=== PATIENT | male | born 1965 | race Caucasian/White ===

== ENCOUNTER 2016-10-11 20:42 | Observation (INO) | payer BC ==
[2016-10-11] MEDS ORDERED: ASPIRIN 81 MG CHEW PO STA (20:55)
[2016-10-11] MEDS ORDERED: SODIUM CHLORIDE 0.9% 1,000 ML IV STA (20:55)
--- NOTE | 2016-10-11 21:21 | ED ---
Chest Pain HPI - General Chief Complaint: Chest Pain Stated Complaint: Chest Pain Time Seen by Provider: 10/11/16 20:51 Source: patient, RN notes reviewed Mode of arrival: ambulatory Limitations: no limitations - History of Present Illness Initial Comments: 51-year-old male presents to the emergency Department chief complaint of chest pain. Patient states that around 4:30 today he developed chest pain in the center of his chest and he didshortness of breath. Patient states he took 2 nitros and the pain resolved. Patient states he does have a history of a heart attack and does have a defibrillator due to a weak heart. Patient states he did feel different than his heart attack. Patient states he had no nausea or vomiting with this. Patient denies any falls traumas or injuries. Patient states that at this time he has no pain. Patient denies any other complaints. Patient denies any recent fever, chills, back pain, abdominal pain, nausea vomiting, numbness or tingling, dysuria or hematuria, constipation or diarrhea, headaches or visual changes, or any other current symptoms. - Related Data Previous Rx's Medication Instructions Recorded Aspirin 325 mg PO DAILY #30 tab 04/18/15 Atorvastatin [Lipitor] 80 mg PO HS #30 tab 04/18/15 Lisinopril [Zestril] 2.5 mg PO HS #30 tab 04/18/15 Metoprolol Tartrate [Lopressor] 25 mg PO BID #60 tab 04/18/15 Nicotine 21Mg/24Hr Patch [Habitrol] 1 patch TRANSDERM DAILY #30 patch 04/18/15 Nitroglycerin Sl Tabs [Nitrostat] 0.4 mg SUBLINGUAL Q5M PRN #25 tab 04/18/15 Prasugrel [Effient] 10 mg PO DAILY #30 tab 04/18/15 Allergies Allergy/AdvReac Type Severity Reaction Status Date / Time No Known Allergies Allergy Verified 10/11/16 20:47 Review of Systems ROS Statement: Those systems with pertinent positive or pertinent negative responses have been documented in the HPI. ROS Other: All systems not noted in ROS Statement are negative. EKG Findings - EKG Comments: EKG Findings:: Normal sinus rhythm 73 beats per minute, patient does appear to have Q waves in leads 23 and aVF, T-wave inversion in [address] elevation noted. Past Medical History Past Medical History: Hypertension, Myocardial Infarction (TX) Last Myocardial Infarction Date:: 04/15/15 History of Any Multi-Drug Resistant Organisms: None Reported Past Surgical History: Orthopedic Surgery Additional Past Surgical History / Comment(s): defibulator Past Anesthesia/Blood Transfusion Reactions: No Reported Reaction Past Psychological History: No Psychological Hx Reported Smoking Status: Current every day smoker Past Alcohol Use History: Occasional Past Drug Use History: None Reported - Past Family History Father Family Medical History: Hypertension Additional Family Medical History / Comment(s): Angina General Exam - General Exam Comments Initial Comments: General: The patient is awake and alert, in no distress, and does not appear acutely ill. Eye: Pupils are equal, round and reactive to light, extra-ocular movements are intact; there is normal conjunctiva bilaterally. No signs of icterus. Ears, nose, mouth and throat: There are moist mucous membranes and no oral lesions. Neck: The neck is supple, there is no tenderness. Cardiovascular: There is a regular rate and rhythm. No murmur, rub or gallop is appreciated. Respiratory: Lungs are clear to auscultation, respirations are non-labored, breath sounds are equal. No wheezes, stridor, rales, or rhonchi. Gastrointestinal: Soft, non-distended, non-tender abdomen without masses or organomegaly noted. There is no rebound or guarding present. No CVA tenderness. Bowel sounds are unremarkable. Back: There is no tenderness to palpation in the midline. There is no obvious deformity. No rashes noted. Musculoskeletal: Normal ROM, no tenderness, There is no pedal edema. There is no calf tenderness or swelling. Sensation intact. Pulses equal bilaterally 2+. Neurological: CN II-XII intact, There are no obvious motor or sensory deficits. Coordination appears grossly intact. Speech is normal. Skin: Skin is warm and dry and no rashes or lesions are noted. Psychiatric: Cooperative, appropriate mood & affect, normal judgment. Limitations: no limitations Course Vital Signs 10/11/16 10/11/16 20:43 21:28 Temperature 98.0 F 98.1 F Pulse Rate 72 75 Respiratory 18 20 Rate Blood Pressure 189/99 157/92 O2 Sat by Pulse 95 98 Oximetry Chest Pain MDM - [facility] 51-year-old male presents to the emergency 5 chief complaint of chest pain with a history of TX. At this time patient's EKG as well as lab work is reviewed that do not show any acute findings. Patient's heart history along with the pain improving with nitro prior to arrival we will admit the patient for continued cardiac workup. This was discussed with patient who is in agreement with the plan. All patient's questions have been answered. He will be admitted at this time. Disposition Clinical Impression: Unstable angina Disposition: ADMITTED IP TO THIS HOSP Condition: Stable Time of Disposition: 22:54
[2016-10-11 21:42] LABS: Basophils # (A) 0.1 k/uL (0-0.2); Basophils % (A) 1 %; CH 31.1; CHCM 35.6; Eosinophils # (A) 0.3 k/uL (0-0.7); Eosinophils % (A) 3 %; HCT 39.1 % (39.0-53.0); HDW 2.63; Luc # (Auto) 0.16; Luc % (Auto) 2; Lymphocytes # (A) 3.7 k/uL (1.0-4.8); Lymphocytes % (A) 37 %; MCH 31.5 pg (25.0-35.0); MCV 87.7 fL (80.0-100.0); Mean Platelet Volume 7.9; Monocytes # (A) 0.6 k/uL (0-1.0); Monocytes % (A) 6 %; Neutrophils # (A) 5.2 k/uL (1.3-7.7); Neutrophils % (A) 52 %; RBC 4.45 m/uL (4.30-5.90); WBC 10.1 k/uL (3.8-10.6); WBC (Perox) 10.44
[2016-10-11 21:47] LABS: ALT 59 U/L (21-72); AST 36 U/L (17-59); Alkaline Phosphatase 91 U/L (38-126); Amylase 39 U/L (30-110); Anion Gap 13 mmol/L; Blood Urea Nitrogen 20 mg/dL (9-20); Calcium 9.1 mg/dL (8.4-10.2); Carbon Dioxide 21 mmol/L (22-30); Chloride 106 mmol/L (98-107); Glucose 111 mg/dL (74-99); Magnesium 1.9 mg/dL (1.6-2.3); Non-African American GFR(MDRD) >60 (>60 ml/min/1.73 sqM); Potassium 4.1 mmol/L (3.5-5.1); Sodium 140 mmol/L (137-145); Total Bilirubin 0.6 mg/dL (0.2-1.3); Total Protein 7.2 g/dL (6.3-8.2)
[2016-10-11 21:51] LABS: Partial Thromboplastin Time 24.4 sec (22.0-30.0); Prothrombin Time 9.9 sec (9.0-12.0)
[2016-10-11 22:18] LABS: Creatine Kinase 69 U/L (55-170)
[2016-10-11 22:31] LABS: Creatine Kinase MB 0.9 ng/mL (0.0-2.4); Troponin I <0.012 ng/mL (0.000-0.034)
--- NOTE | 2016-10-11 22:45 | XR ---
EXAMINATION TYPE: XR chest 2V DATE OF EXAM: 10/11/2016 10:37 PM COMPARISON: 11/26/2013 HISTORY: Chest pain TECHNIQUE: Frontal and lateral views of the chest are obtained. FINDINGS: Heart and mediastinum are normal. Lungs are clear. Diaphragm is normal. There is a defibri llator over the left lateral chest wall. There are no hilar masses. Bony thorax is intact. IMPRESSION: Normal chest. No change.
[2016-10-11] MEDS ORDERED: HEPARIN SODIUM,PORCINE 5,000 UNIT/ML 1 ML VIAL IV ONE (22:55)
[2016-10-11] MEDS ORDERED: NITROGLYCERIN SL TABS 0.4 MG TAB SUBLINGUAL PRN (22:55)
[2016-10-11] MEDS ORDERED: HEPARIN SODIUM,PORCINE/D5W PMX 25,000 UNIT in DEXTROSE/WATER 1 500ML.BAG IV SCH (23:00)
[2016-10-11 23:59] VITALS: BMI 28.0
[2016-10-12 04:18] LABS: Creatine Kinase 61 U/L (55-170)
[2016-10-12 04:31] LABS: Creatine Kinase MB 0.8 ng/mL (0.0-2.4); Troponin I <0.012 ng/mL (0.000-0.034)
[2016-10-12 07:10] LABS: Mean Platelet Volume 8.3
[2016-10-12 07:20] LABS: Cholesterol 145 mg/dL (<200); HDL Cholesterol 36 mg/dL (40-60); Triglycerides 153 mg/dL (<150)
[2016-10-12] MEDS ORDERED: NITROGLYCERIN SL TABS 0.4 MG TAB SUBLINGUAL PRN (07:37)
[2016-10-12 08:07] VITALS: RESP 16
[2016-10-12] MEDS ORDERED: ASPIRIN 81 MG CHEW PO SCH (09:00)
[2016-10-12] MEDS ORDERED: LISINOPRIL 10 MG TAB PO SCH (09:00)
[2016-10-12] MEDS ORDERED: NICOTINE 21MG/24HR PATCH TRANSDERM SCH (09:00)
[2016-10-12] MEDS ORDERED: METOPROLOL SUCCINATE (ER) 25 MG TAB.ER.24H PO SCH (09:00)
[2016-10-12] MEDS ORDERED: ASPIRIN 325 MG TAB PO SCH (09:00)
[2016-10-12 10:36] LABS: Creatine Kinase 56 U/L (55-170)
[2016-10-12 10:50] LABS: Creatine Kinase MB 0.7 ng/mL (0.0-2.4); Troponin I <0.012 ng/mL (0.000-0.034)
[2016-10-12 12:08] VITALS: BP 159/83; PULSE 59; TEMP 97.8
--- NOTE | 2016-10-12 16:36 | HP ---
DATE OF ADMISSION: 10/11/2016 PRESENTING COMPLAINT: Chest pain. HISTORY OF PRESENTING COMPLAINT: This is a 51-year-old patient who back in April 2015 had an acute IN with stent to the RCA. Also chronic stable conditions include hypertension, hyperlipidemia, EF at that time was 40%, since then the patient has not had a stress test. Patient is pretty active at his job. Patient presents with over half of an hour of the lower chest pain. Lasted for good about half an hour. Patient took two nitros and the went off. There was no radiation. No shortness of breath. No perspiration. No dizziness. Patient was admitted with a diagnosis of unstable angina. REVIEW OF SYSTEMS: CONSTITUTIONAL: None. HEENT: None. RESPIRATORY: None. CARDIOVASCULAR: As above. GASTROINTESTINAL: None. GENITOURINARY: None. MUSCULOSKELETAL: None. Dermatological: None. HEMATOLOGICAL: None. LYMPHATICS: None. PSYCHIATRY: None. NEUROLOGICAL: None. PAST MEDICAL HISTORY: Hypertension, hyperlipidemia, ischemic cardiomyopathy; ejection fraction 40%, acute IN with stent of the RCA. PAST SURGICAL HISTORY: Orthopedic surgery, cardiac cath with stent left wrist tendon repair, left cataract removed. SOCIAL HISTORY: The patient is smoking a pack a day for several years. . The patient works as changing oil person. . Alcohol occasionally. FAMILY HISTORY: COPD, hypertension, angina. HOME MEDICATIONS: 1. Aldactone 25 mg a day. 2. Nitrostat 0.4 sublingual q.5 p.r.n. 3. Toprol-XL 25 mg a day. 4. Zestril 10 mg b.i.d. 5. Lipitor 80 mg q.h.s. 6. Aspirin 162 mg a day. ALLERGIES: None. On examination vital signs on presentation: Temperature 98, pulse 72, respiration 18, blood pressure ( ), pulse ox 95% on room air. GENERAL APPEARANCE: Average build. Sitting up, not in distress. EYES: Pupils equal. Conjunctivae normal. HEENT: External appearance of nose and ears normal. Oral cavity normal. NECK: Palpable. RESPIRATORY: Effort normal. Lungs are clear. CARDIOVASCULAR: First and second sounds normal. No edema. ABDOMEN: Nontender. Liver and spleen not palpable. LYMPHATIC: No lymph nodes palpable in neck or axillae. PSYCHIATRY: Alert and oriented x3. Mood and affect normal. NEUROLOGICAL: Pupils equal. Cranial nerves grossly intact. Power and sensation grossly intact. INVESTIGATIONS: White count 10.1, hemoglobin 14.0, potassium 4.1. BUN and creatinine are normal. Troponin x3 negative. EKG shows normal sinus rhythm, some nonspecific changes in the inferolateral leads, chest x-ray normal. ASSESSMENT: 1. Possible unstable angina in a patient with known coronary artery disease continued to smoke. Troponins being negative. 2. Coronary artery disease with prior history of stent to right coronary artery in April 2015. 3. Essential hypertension, uncontrolled. 4. Hyperlipidemia. 5. Ischemic cardiomyopathy last ejection fraction was 40%. PLAN: Patient advised against smoking. We will add some nitrate. Changes Zestril with addition to hydrochlorothiazide. Cardiology is consulted. Patient and both counseled against smoking.
--- NOTE | 2016-10-12 17:20 | CONS ---
DATE OF CONSULTATION: 51-year-old male patient who presented to the hospital with chest discomfort, he was started on ( ) in the mid chest and this is associated with shortness of breath. He states that the pain is very different from when he had the heart attack. No dizziness, no lightheadedness or palpitations. REVIEW OF SYSTEMS: No fever, chills, rigors. No cough or expectoration. No nausea, vomiting or diarrhea. No hematuria, or dysuria. No strokes or seizures. No skin lesions or musculoskeletal complaints. Medication list was reviewed and includes: 1. Aspirin. 2. Atorvastatin. 3. Lisinopril. 4. Metoprolol. 5. Nicotine patch. 6. Nitroglycerin. 7. Effient. ALLERGIES: No known drug allergies. Past medical history of hypertension and myocardial infarction and cardiac arrest, status post subcutaneous ICD implant. Family history of hypertension. On examination, he is afebrile. His blood pressure was elevated upon admission, heart rate is in the 70s. Head and neck examination is normal. Heart sounds are normal. Lungs are clear to auscultation. EXTREMITIES: Warm. No edema. IMPRESSION: 1. Known ischemic cardiomyopathy. 2. Chronic obstructive pulmonary disease and history of myocardial infarction and hypertension. Labs were reviewed. His cardiac enzymes were normal. LDL was 78. Hemoglobin is normal. Blood pressure is 159/83 mm of mercury. 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
[2016-10-12] MEDS ORDERED: ATORVASTATIN 80 MG TAB PO SCH (21:00)
--- NOTE | 2016-10-13 14:22 | DS ---
DATE OF ADMISSION: 10/11/2016 DATE OF DISCHARGE: 10/12/2016 FINAL DIAGNOSES: 1. Chest pain, possible unstable angina in a patient with known coronary artery disease who has continued to smoke. Troponins are negative. 2. Coronary artery disease with prior history of stent of the RCA in April 2015. 3. Essential hypertension, uncontrolled. 4. Hyperlipidemia. 5. Ischemic cardiomyopathy; ejection fraction 40%. CONSULTATION: Dr. Contreras. HOSPITAL COURSE: This patient presented with anterior chest wall pain. Troponins are negative. Patient LDL came back at 78. Patient and both counseled against smoking. Dr. Contreras okayed the patient to be discharged. DISCHARGE MEDICATIONS: 1. Lipitor 80 mg q.h.s. 2. Nitrostat 0.4 sublingual q.5 p.r.n. 3. Aspirin 160 mg a day. 4. Zestoretic 06/26.5 1 tablet p.o. b.i.d., new prescription. 5. Toprol-XL 25 mg a day. 6. Nicotine 21 mg patch 14 days new prescription. The patient is to follow up with her [employer], Dr. López next week, follow-up with Dr. Streeter in 3 days. On exam, lungs are clear. CARDIOVASCULAR: First and second sounds normal.
== END 2016-10-12 15:30 | disposition home or self-care (01) ==
LOC: EC 20:42 → 3OBS 22:55
PROVIDERS: ADMIT Hospitalist; ATTEND Hospitalist
DX: R07.9 Chest pain, unspecified (principal); I25.10 Atherosclerotic heart disease of native coronary artery without angina pectoris; E78.5 Hyperlipidemia, unspecified; F17.210 Nicotine dependence, cigarettes, uncomplicated; I10 Essential (primary) hypertension; I25.5 Ischemic cardiomyopathy; I50.9 Heart failure, unspecified; I25.2 Old myocardial infarction; J44.9 Chronic obstructive pulmonary disease, unspecified; Z79.82 Long term (current) use of aspirin; Z95.5 Presence of coronary angioplasty implant and graft; Z95.810 Presence of automatic (implantable) cardiac defibrillator; Z79.899 Other long term (current) drug therapy; Z79.02 Long term (current) use of antithrombotics/antiplatelets
CPT/HCPCS: 36415; 93005; 80061; 80053; 82150; 82550 ×2; 82553 ×2; 83690; 83735; 84484 ×2; 85025; 85049; 85610; 85730 ×2; 71020; 99285; 96365; 96376; 96361 ×2; G0378 ×2; J1644 ×2; 96366

== ENCOUNTER → 2021-08-17 | Outpatient (CLI) | payer BC ==
[~2021-08-17] MED LIST: SODIUM CHLORIDE 0.9% 50 ML IVPB NR; SODIUM CHLORIDE 0.9% 500 ML 500 ML in EMPTY BAG 1 BAG IV PRN; SOTROVIMAB (EUA) 500 MG in SODIUM CHLORIDE 0.9% 100 ML IVPB NR
[2021-08-17 14:33] VITALS: TEMP 97.8
[2021-08-17 14:36] VITALS: BP 150/89; PULSE 84; RESP 16
== END ==
LOC: PROCWHC3 12:51
PROVIDERS: ATTEND Nurse Practitioner Adult Health
DX: U07.1 COVID-19 (principal); E66.9 Obesity, unspecified; F17.200 Nicotine dependence, unspecified, uncomplicated; Z68.29 Body mass index [BMI] 29.0-29.9, adult
CPT/HCPCS: 96360; Q0247; M0247

== ENCOUNTER → 2021-09-03 | Outpatient (CLI) | payer BC ==
--- NOTE | 2021-09-05 09:42 | ECHOF ---
Referral Reason:I25.5 Ischemic cardiomyopathy MEASUREMENTS -------- HEIGHT: 180.3 cm WEIGHT: 97.5 kg BP: RVIDd: 2.5 cm (< 3.3) IVSd: 1.0 cm (0.6 - 1.1) LVIDd: 5.7 cm (3.9 - 5.3) LVPWd: 1.0 cm (0.6 - 1.1) IVSs: 1.5 cm LVIDs: 4.6 cm LVPWs: 1.2 cm LAESV Index (A-L): 15.89 ml/m Ao Diam: 3.3 cm (2.0 - 3.7) AV Cusp: 1.9 cm (1.5 - 2.6) LA Diam: 3.5 cm (2.7 - 3.8) MV EXCURSION: 14.577 mm (> 18.000) MV EF SLOPE: 97 mm/s (70 - 150) EPSS: 1.1 cm MV E Buzz: 0.64 m/s MV DecT: 174 ms MV A Buzz: 0.84 m/s MV E/A Ratio: 0.76 RAP: 5.00 mmHg RVSP: 8.40 mmHg FINDINGS -------- AICD This was a technically adequate study. The left ventricular size is normal. Left ventricular wall thickness is normal. Overall left vent ricular systolic function is mild-moderately impaired with, an EF between 40 - 45 %. Basal inferior LV wall motion is hypokinetic. Mid inferior LV wall motion is hypokinetic. Basal inferolateral hypokinesis. The right ventricle is normal in size. The left atrial size is normal. The right atrial size is normal. The aortic valve is trileaflet and appears structurally normal. The mitral valve is normal. There is trace mitral regurgitation. The tricuspid valve appears structurally normal. Trace tricuspid regurgitation present. Right earnestine tricular systolic pressure is normal at < 35 mmHg. There is no pulmonic regurgitation present. The aortic root size is normal. Normal inferior vena cava with normal inspiratory collapse consistent with estimated right atrial pre ssure of 5 mmHg. There is no pericardial effusion. CONCLUSIONS -------- 1. The left ventricular size is normal. 2. Left ventricular wall thickness is normal. 3. Overall left ventricular systolic function is mild-moderately impaired with, an EF between 40 - 45 %. 4. Basal inferior LV wall motion is hypokinetic. 5. Mid inferior LV wall motion is hypokinetic. 6. Basal inferolateral hypokinesis. 7. There is trace mitral regurgitation. 8. Trace tricuspid regurgitation present. METAL FLOORING INSTALLER: Janelle Swanson RDCS
== END | disposition home or self-care (01) ==
LOC: RADECHMAIN 13:58
PROVIDERS: ATTEND Family Medicine
DX: I08.1 Rheumatic disorders of both mitral and tricuspid valves (principal)
CPT/HCPCS: 93306

== ENCOUNTER → 2021-11-28 | Outpatient (CLI) | payer OTHER, BC ==
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
== END | disposition home or self-care (01) ==
LOC: RADCTMAIN 06:11
PROVIDERS: ATTEND Family Medicine
DX: J43.8 Other emphysema (principal); I25.10 Atherosclerotic heart disease of native coronary artery without angina pectoris
CPT/HCPCS: 71250

== ENCOUNTER → 2022-01-18 | Outpatient (CLI) | payer BC ==
--- NOTE | 2022-01-18 07:50 | US ---
EXAMINATION TYPE: US kidneys/renal and bladder DATE OF EXAM: 01/18/2022 COMPARISON: NONE CLINICAL HISTORY: N17.9 ACUTE KIDNEY FAILURE. abn labs, no symptoms EXAM MEASUREMENTS: Right Kidney: 9.3 x 4.3 x 4.7 cm Left Kidney: 10.4 x 3.9 x 5.4 cm Right Kidney: No hydronephrosis or masses seen Left Kidney: No hydronephrosis or masses seen Bladder: wnl There is no evidence for hydronephrosis at this point in time. No nephrolithiasis is seen. No nona s are identified. The urinary bladder is anechoic. Bilateral ureteral jets are seen. IMPRESSION: Mild renal parenchymal thinning.
== END | disposition home or self-care (01) ==
LOC: RADUSWWP 06:54
PROVIDERS: ATTEND Family Medicine
DX: N28.89 Other specified disorders of kidney and ureter (principal)
CPT/HCPCS: 76770

== ENCOUNTER → 2024-09-27 | Outpatient (CLI) | payer BC ==
--- NOTE | 2024-09-27 17:25 | CTL ---
EXAMINATION TYPE: CT Low Dose Lung DATE OF EXAM: 09/27/2024 5:13 PM COMPARISON: 11/28/2021 CLINICAL INDICATION: Male, 59 years old with history of Z12.2 LUNG CA SCR F14.210 CURRENT SMOKER; smo ker, history of tobacco use. TECHNIQUE: Multiple axial non-contrast scans were obtained from approximately the lung apices through the upper abdomen. Coronal and sagittal reformatted images were obtained. Low dose technique was uti lized. MIP were created on a separate workstation and submitted for review. CT DLP: 146.1 mGycm, Automated exposure control for dose reduction was used. CT Contrast: Contrast used: None Oral contrast used: None FINDINGS: Lack of intravenous contrast and low dose technique limits the evaluation of the vascular and soft ti ssue structures. LUNGS: No evidence of pulmonary fibrosis. No evidence of focal consolidation, pneumothorax or pleural effusion. Centrilobular emphysema changes. Nodules: RUL: None. RML: None. RLL: None. [place]: None. LLL: Chronic glass nodule/parenchymal abnormality series 5 image 52 not seen on 11/28/2021.. AIRWAY: Patent and unremarkable. HEART: Size within normal limits.Atherosclerosis of the arterial vasculature. Cardiac conduction lead s terminating in the anterior subcutaneous tissues. MEDIASTINUM: No gross evidence of adenopathy. VASCULATURE: No aortic aneurysm. MUSCULOSKELETAL: Mild disc degeneration changes are present throughout the thoracolumbar spine. SOFT TISSUES/LYMPH NODES: Unremarkable. LOWER NECK: No significant findings. UPPER ABDOMEN: No significant findings. IMPRESSION: 1. No clinically significant pulmonary nodules. 2. Mild emphysema. CT LUNG RAD AND CT CHEST RECOMMENDATION: Lung-Rad 2 Benign Appearance or Behavior: Continue annual sc reening with LDCT in 12 months. S Modifier (other clinically significant findings): None Recommend smoking cessation (if current smoker), or continuation of smoking cessation (if prior smoke r). Annual screening for lung cancer with low-dose computed tomography is recommended in adults ages 55 to 77 years who have a 30 pack-year smoking history and currently smoke or have quit within the pa st 15 years. Screening should be discontinued once a person has not smoked for 15 years or develops a health problem that substantially limits life expectancy or the ability or willingness to have curat dwayne lung surgery. Lung rads 2021 [email or web address] [facility], , 09/27/2024 5:23 PM
== END | disposition home or self-care (01) ==
LOC: RADCTMAIN 15:32
PROVIDERS: ATTEND Family Medicine
DX: Z12.2 Encounter for screening for malignant neoplasm of respiratory organs (principal); I73.9 Peripheral vascular disease, unspecified; J43.9 Emphysema, unspecified; F17.210 Nicotine dependence, cigarettes, uncomplicated
CPT/HCPCS: 71271

== ENCOUNTER → 2024-09-27 | Outpatient (CLI) | payer BC ==
--- NOTE | 2024-09-27 16:13 | US ---
EXAMINATION TYPE: US arterial LE single level DATE OF EXAM: 09/27/2024 2:59 PM COMPARISONS: None. CLINICAL INDICATION: Male, 59 years old with history of I73.9 PERIPHERAL VASCULAR DISEASE, UNSPECIFIE D; PVD TECHNIQUE: Systolic pressures were taken of the upper and lower extremity arteries with ankle-brachia l indices and toe brachial indices calculated bilaterally. History of: Smoker: current Hypertension: yes Diabetic: yes Hyperlipidemia: yes TIA/CVA: no Previous Vascular Surgery: no CO: yes Vascular Ulcers: no Claudication: no Gangrene: no FINDINGS: Doppler Waveforms: Right: Left: Pulse Volume Recording: Pressure Gradients: Brachial Artery systolic pressure: Right: 159 Left: 155 Posterior Tibial artery systolic pressure: Right: 161 Left: 142 Dorsalis Pedis artery systolic pressure: Right: 142 Left: 113 Toe artery systolic pressure: Right: 120 Left: 96 Ankle-Brachial Indices: Right: 1.01 Left: 0.89 Toe Brachial Indices: Right: 0.75 Left: 0.60 (Normal > 0.6; Mild 0.35 - 0.59, Moderate 0.12 - 0.34, Severe <0.12) IMPRESSION: 1. No significant stenosis identified by ratios and velocities. [facility], , 09/27/2024 4:10 PM
== END | disposition home or self-care (01) ==
LOC: RADUSWWP 14:57
PROVIDERS: ATTEND Family Medicine
DX: I73.9 Peripheral vascular disease, unspecified (principal)
CPT/HCPCS: 93923

== ENCOUNTER 2025-01-21 07:02 | Day surgery (SDC) | payer BC ==
[2025-01-19 08:49] VITALS: BMI 31.4
[2025-01-21] MEDS: IV FLUID CONTINUATION 1,000 ML IV ONE (07:34)
[2025-01-21] MEDS: LACTATED RINGERS 1,000 ML IV SCH (07:34)
[2025-01-21 07:35] VITALS: RESP 16; TEMP 97.1
[2025-01-21] MEDS ORDERED: PROPOFOL 10 MG/ML 20 ML VIAL IV ONE (07:40)
[2025-01-21] MEDS ORDERED: LIDOCAINE 1% INJ 10MG/ML (20 ML MDV) ONE (07:40)
--- NOTE | 2025-01-21 08:06 | P.PCN ---
Date of Procedure: 01/21/25 Procedure(s) Performed: Brief history: Patient is a pleasant 59-year-old white male scheduled for an elective upper endoscopy as well as colonoscopy as a part of evaluation of GERD and screening for colon cancer Procedure performed: Esophagogastroduodenoscopy with biopsy Colonoscopy with snare polypectomy Preoperative diagnosis: GERD Screening for colon cancer Anesthesia: MAC Procedure: After informed consent was obtained from the patient was brought into the endoscopy unit and IV sedation was administered by anesthesia under continuous monitoring. Initially upper endoscopy was done. The Olympus GF 160 video endoscope was inserted inserted into the mouth and esophagus intubated without any difficulty and was gradually advanced into the stomach and duodenum and carefully examined. The bulb had mild duodenitis and second part of the duodenum appeared normal. The scope was then withdrawn into the stomach adequately insufflated with air and upon careful examination the antrum had patchy areas of erythema consistent with gastritis. Biopsies were done from this area. Mucosa of the body, cardia and fundus appeared normal. The scope was then withdrawn into the esophagus. The GE junction was located at 40 cm to the incisors. It appeared regular with linear erosions in the distal esophagus consistent with LA grade B reflux esophagitis rest of the esophagus appeared normal. Patient tolerated the procedure well. At this time the patient continued to remain sedation. Initial digital rectal examination was normal. Olympus CF 160 video colonoscope was then inserted into the rectum and gradually advanced to the cecum without any difficulty. Careful examination was performed as the scope was gradually being withdrawn. The prep was excellent. The cecum, ascending colon, transverse colon, descending colon, appeared normal. The sigmoid colon there was a 5 mm polyp that was removed by snare polypectomy. In the rectosigmoid colon there was a 1 cm polyp removed by snare polypectomy. In the rectum there were two 1 cm polyps and 1.2 cm polyp removed by snare polypectomy. Rest of the sigmoid colon and rectum appeared normal. Retroflexion was performed in the rectum and no lesions were noted. Patient tolerated the procedure well. Impression: 1. Upper endoscopy revealed linear erosions of the distal esophagus consistent with LA grade B reflux esophagitis, mild antral gastritis and duodenitis 2. Colonoscopy revealed: 5 mm sigmoid colon polyp status post polypectomy 1 cm rectosigmoid polyp status post polypectomy 1 cm x 2 and 1.2 cm rectal polyp status post polypectomy Recommendations: Findings of this examination were discussed with the patient as well as his family. He was advised to follow-up with the biopsy results. He will be started on omeprazole 20 mg daily and was advised to follow antireflux measures. If the biopsy reveals adenoma he can have repeat colonoscopy in 3 years for
[2025-01-21 08:32] VITALS: BP 108/63; PULSE 61
== END 2025-01-21 08:58 | disposition home or self-care (01) ==
LOC: ORWHC2ENDO 07:02
PROVIDERS: ATTEND Internal Medicine Gastroenterology
DX: Z12.11 Encounter for screening for malignant neoplasm of colon (principal); K29.50 Unspecified chronic gastritis without bleeding; D12.5 Benign neoplasm of sigmoid colon; D12.7 Benign neoplasm of rectosigmoid junction; K21.9 Gastro-esophageal reflux disease without esophagitis; I25.10 Atherosclerotic heart disease of native coronary artery without angina pectoris; I11.0 Hypertensive heart disease with heart failure; I50.9 Heart failure, unspecified; E78.5 Hyperlipidemia, unspecified; F32.A Depression, unspecified; F17.210 Nicotine dependence, cigarettes, uncomplicated; H27.03 Aphakia, bilateral; Z00-Z99 Factors influencing health status and contact with health services; Z79.02 Long term (current) use of antithrombotics/antiplatelets; Z79.82 Long term (current) use of aspirin; Z79.899 Other long term (current) drug therapy
CPT/HCPCS: 45385; 43239; J2003; J2704; 88305